=== PATIENT | female | born 1980 | race African-American/Black ===

== ENCOUNTER 2017-03-04 18:04 | Emergency (ER) | payer MEDICAID ==
[~2017-03-04] VITALS: Ht 172.7 cm; Wt 90.7 kg
[2017-03-04 18:23] VITALS: BP 155/113
[2017-03-04] MEDS ORDERED: DEXAMETHASONE SOD PHOS 20 MG/5 ML VIAL. IM ONE (19:00)
[2017-03-04] MEDS ORDERED: DIPHENHYDRAMINE 50 MG/ML VIAL. IM ONE (19:00)
--- NOTE | 2017-03-04 19:26 | PHYS DOC ---
Past Medical History Past Medical History: Hypertension Past Surgical History: , Other Additional Past Surgical Histo: left femur fracture repair with hardware Additional Information: 11/18 ppd Alcohol Use: None Drug Use: None Adult General Chief Complaint Chief Complaint: SKIN RASH/ABSCESS [facility] HPI Patient is a 36 year old female who presents with itchy rash for 2 days. She has spots on her abdomen, arms, and legs. Patient is currently living with her mother and tzqhut-ng-qwt at her boyfriend's house. Her oxmkbm-vb-hbg has a similar rash. Her boyfriend and aejqat-bf-njm do not have a rash. There are animals in the him that go outdoors. The patient denies any changes in household products, new medications, or new foods. She does not have any shortness of breath, angioedema, or fever. She does not have a PCP. Review of Systems Review of Systems Constitutional: Denies fever or chills. [] Eyes: Denies change in visual acuity, redness, or eye pain. [] HENT: Denies ear pain, nasal congestion or sore throat. His angioedema. Respiratory: Denies cough or shortness of breath. [] Cardiovascular: Denies chest pain, palpitations or edema. [] GI: Denies abdominal pain, nausea, vomiting, bloody stools or diarrhea. [] : Denies dysuria, hematuria or urinary frequency. [] Musculoskeletal: Denies back pain or joint pain. [] Integument: Denies skin lesions. Reports pruritic rash. Neurologic: Denies headache, focal weakness or sensory changes. [] Endocrine: Denies polyuria or polydipsia. [] Psych: Denies anxiety or depression. [] All systems reviewed and negative unless otherwise stated in the HPI. Current Medications Current Medications Current Medications Medications (Trade) Dose Ordered Sig/Massiel Start Time Stop Time Status Last Admin Dose Admin Dexamethasone Sodium Phosphate (Decadron) 10 mg 1X ONCE 03/04/17 19:00 03/04/17 19:01 DC 03/04/17 19:03 10 MG Diphenhydramine HCl (Benadryl) 25 mg 1X ONCE 03/04/17 19:00 03/04/17 19:01 DC 03/04/17 19:03 25 MG Allergies Allergies Allergies Coded Allergies Type Severity Reaction Last Updated Verified No Known Drug Allergies 03/04/17 No Physical Exam Physical Exam Constitutional: Well developed, well nourished, no acute distress, non-toxic appearance. [] HENT: Normocephalic, atraumatic, oropharynx moist. [] Eyes: PERRLA, EOMI, conjunctiva normal, no discharge. [] Neck: Normal range of motion, no tenderness, supple, no stridor. [] Skin: Warm, dry. There are urticaria on the abdomen. There are erythematous maculopapular lesions on the arms and legs that appear like insect bites. Back: No midline tenderness, no CVA tenderness. [] Extremities: No tenderness, ROM intact, no edema. Distal pulses equal bilaterally. [] Neurologic: Alert and oriented X 3, normal motor function, normal sensory function, no focal deficits noted. [] Psychologic: Affect normal, judgement normal, mood normal. [] Current Patient Data Vital Signs Vital Signs Date Time Temp Pulse Resp B/P Pulse Ox O2 Delivery O2 Flow Rate FiO2 03/04/17 18:23 98.8 86 16 94 Room Air 98.8 EKG EKG [] Radiology/Procedures Radiology/Procedures [] Course & Med Decision Making Course & Med Decision Making Pertinent Labs and Imaging studies reviewed. (See chart for details) The patient presents with pruritic rash that appears to be insect bites with localized allergic reaction causing hives on the abdomen. One household member has a similar rash and the other 2 do not. The patient is advised to wash all of her clothes and linens on hot water. She is given IM Decadron and Benadryl in the emergency department. She is instructed to continue Benadryl at home. Return precautions were discussed. She verbalizes understanding and agrees with plan. Dragon Disclaimer Dragon Disclaimer This electronic medical record was generated, in whole or in part, using a voice recognition dictation system. Departure Departure Impression: Primary Impression: Insect bite Additional Impression: Urticaria Disposition: 01 HOME, SELF-CARE Condition: STABLE Referrals: NO PCP (PCP) Patient Instructions: Hives, Tnjm-pj-Oqzr, Insect Bite, Zkmm-wd-Thio Additional Instructions: Your rash appears to be caused by insect bites causing a localized allergic reaction. You were given a shot of a long-acting steroid and a shot of Benadryl in the emergency department. Please continue taking Benadryl at home for itching. Use according to package instructions. Return to the emergency department if you have difficulty breathing, swelling of the lips or tongue, fever, or other new or concerning symptoms. Problem Qualifiers Primary Impression: Insect bite Encounter type: initial encounter Qualified Code: W57.XXXA - Bitten or stung by nonvenomous insect and other nonvenomous arthropods, initial encounter LONNIE DAWSON Mar 04, 2017 19:26
== END 2017-03-04 19:32 | disposition home or self-care (01) ==
LOC: ER 18:04
DX: L50.9 Urticaria, unspecified (principal); S30.861A Insect bite (nonvenomous) of abdominal wall, initial encounter; I10 Essential (primary) hypertension; F17.200 Nicotine dependence, unspecified, uncomplicated; W57.XXXA Bitten or stung by nonvenomous insect and other nonvenomous arthropods, initial encounter; Y93.89 Activity, other specified; Y92.89 Other specified places as the place of occurrence of the external cause; Y99.8 Other external cause status
CPT/HCPCS: 96372; 99284; J1100; J1200

== ENCOUNTER 2017-03-27 14:33 | Emergency (ER) | payer MEDICAID ==
[~2017-03-27] VITALS: Ht 170.2 cm; Wt 86.2 kg
[2017-03-27 14:54] VITALS: BP 170/103
[2017-03-27] MEDS ORDERED: PRED50TA PO (15:21)
[2017-03-27] MEDS ORDERED: TRIA15CR3 TP (15:21)
[2017-03-27] MEDS ORDERED: SPIR25TA3 PO (15:21)
[2017-03-27] MEDS ORDERED: HYDR12.58 PO (15:21)
[2017-03-27] MEDS ORDERED: FAMO-63 PO (15:21)
[2017-03-27] MEDS ORDERED: AMLO10TA2 PO (15:21)
--- NOTE | 2017-03-27 15:21 | PHYS DOC ---
Past Medical History Past Medical History: Hypertension Past Surgical History: , Other Additional Past Surgical Histo: left femur fracture repair with hardware Alcohol Use: None Drug Use: None Adult General Chief Complaint Chief Complaint: HIP PAIN HPI HPI Patient is a 36 year old female with history of hypertension who presents today with pruritic bruising/rashes on bilateral upper and lower extremities that began 2 weeks ago. Patient denies any new contacts. She states she does not have a PCP hence she has not been taking her blood pressure medicines. Patient denies any fever. Review of Systems Review of Systems Constitutional: Denies fever or chills [] Eyes: Denies change in visual acuity, redness, or eye pain [] HENT: Denies nasal congestion or sore throat [] Respiratory: Denies cough or shortness of breath [] Cardiovascular: No additional information not addressed in HPI [] GI: Denies abdominal pain, nausea, vomiting, bloody stools or diarrhea [] : Denies dysuria or hematuria [] Musculoskeletal: Denies back pain or joint pain [] Integument:bruising and rash Neurologic: Denies headache, focal weakness or sensory changes [] Endocrine: Denies polyuria or polydipsia [] Allergies Allergies Allergies Coded Allergies Type Severity Reaction Last Updated Verified No Known Drug Allergies 03/27/17 No Physical Exam Physical Exam Constitutional: Well developed, well nourished, no acute distress, non-toxic appearance. [] HENT: Normocephalic, atraumatic, bilateral external ears normal, oropharynx moist, no oral exudates, nose normal. [] Eyes: PERRLA, EOMI, conjunctiva normal, no discharge. [] Neck: Normal range of motion, no tenderness, supple, no stridor. [] Cardiovascular:Heart rate regular rhythm, no murmur [] Lungs & Thorax: Bilateral breath sounds clear to auscultation [] Abdomen: Bowel sounds normal, soft, no tenderness, no masses, no pulsatile masses. [] Skin: small scattered areas of erythematous macular rash on bilateral upper and lower extremities. Back: No tenderness, no CVA tenderness. [] Extremities: No tenderness, no cyanosis, no clubbing, ROM intact, no edema. [] Neurologic: Alert and oriented X 3, normal motor function, normal sensory function, no focal deficits noted. [] Psychologic: Affect normal, judgement normal, mood normal. [] Current Patient Data Vital Signs Vital Signs Date Time Temp Pulse Resp B/P (MAP) Pulse Ox O2 Delivery O2 Flow Rate FiO2 03/27/17 14:54 98.6 99 18 99 Room Air 98.6 EKG EKG [] Radiology/Procedures Radiology/Procedures [] Course & Med Decision Making Course & Med Decision Making Pertinent Labs and Imaging studies reviewed. (See chart for details) Patient has erythematous rash on bilateral upper and lower extremities suspicions of flea bites or contact dermatitis. She was given a prescription for Zyrtec and triamcinolone cream. Her blood pressure was 170/103, she states she has history of hypertension and is supposed to be on several medications which she has not taken for one because she has no PCP to get refills from. I did give her a primary care doctor list for follow-up. Gave her prescription for the medication she is supposed to be taking including amlodipine HCTZ and spironolactone. Dragon Disclaimer Dragon Disclaimer This electronic medical record was generated, in whole or in part, using a voice recognition dictation system. Departure Departure Impression: Primary Impression: Contact dermatitis Additional Impression: Accelerated hypertension Disposition: HOME, SELF-CARE Condition: STABLE Referrals: NO PCP (PCP) FATOU SHETH MD follow up with the primary care doctor and physiatrist Patient Instructions: Contact Dermatitis, Hypertension Additional Instructions: You were seen for a rash to bilateral upper and lower extremities. We put you on medications to help with this rash. Take them as prescribed. Follow-up with the primary care doctor for your hypertension as soon s you can and a physiatrist in 2 weeks if the rash does not clear with the medication. Scripts Spironolactone (SPIRONOLACTONE) 25 Mg Tablet 1 TAB PO DAILY, #30 TAB 5 Refills Prov: PETE BALDERAS LANDCARE OFFICER 03/27/17 Hydrochlorothiazide (HYDROCHLOROTHIAZIDE TABLET) 12.5 Mg Tablet 1 TAB PO DAILY, #30 TAB 0 Refills Prov: PETE BALDERAS APRN 03/27/17 Amlodipine Besylate (AMLODIPINE BESYLATE) 10 Mg Tablet 10 MG PO DAILY, #30 TAB Prov: PETE BALDERAS LANDCARE OFFICER 03/27/17 Triamcinolone Acetonide (TRIAMCINOLONE ACETONIDE 0.1% CREAM) 15 Gm Cream..g. 1 LETA TP BID, #1 TUBE 1 Refill Prov: PETE BALDERAS PIPO 03/27/17 Famotidine (PEPCID) 20 Mg Tablet 20 MG PO DAILY for 7 Days, #7 TAB Prov: PETE BALDERAS LANDCARE OFFICER 03/27/17 Prednisone (PREDNISONE) 50 Mg Tablet 1 TAB PO DAILY, #5 TAB Prov: PETE BALDERAS LANDCARE OFFICER 03/27/17 Problem Qualifiers Primary Impression: Contact dermatitis Contact dermatitis type: unspecified Contact dermatitis trigger: unspecified trigger Qualified Codes: L25.9 - Unspecified contact dermatitis, unspecified cause PETE BALDERAS PIPO March 27, 2017 15:21
== END 2017-03-27 15:30 | disposition home or self-care (01) ==
LOC: ER 14:33
DX: L25.9 Unspecified contact dermatitis, unspecified cause (principal); I10 Essential (primary) hypertension
CPT/HCPCS: 99283

== ENCOUNTER 2017-05-28 05:30 | Emergency (ER) | payer MEDICAID ==
[~2017-05-28] VITALS: Ht 170.2 cm; Wt 97.5 kg
[~2017-05-28 05:30] MED LIST: AMLO10TA2 PO; FAMO-63 PO; HYDR12.58 PO; PRED50TA PO; SPIR25TA3 PO; TRIA15CR3 TP
--- NOTE | 2017-05-28 06:12 | PHYS DOC ---
Past Medical History Past Medical History: Hypertension, Other Additional Past Medical Histor: FIBROIDS Past Surgical History: , Other Additional Past Surgical Histo: left femur fracture repair with hardware Alcohol Use: None Drug Use: None Adult General Chief Complaint Chief Complaint: VAGINAL BLEEDING HPI HPI Patient is a 36 year old -[place] female who presents with abdominal pain. She states she has a history of uterine fibroids and had to have a Mirena implanted to prevent her menorrhalgia. She states this morning it 5:30 she woke up having abdominal pain and some cramps in her thighs and changed her tampon in her Mirena fell out. She presents to ER complaining about 7 out of 10 abdominal pain states she has some cramps during her menstrual cycles but not like this even though she told the nurses this is the pain she has with her menstrual cycle. She denies any nausea vomiting, she denies any recent intercourse last night. States that she is on her cycle currently. She also states she has a history of hypertensions was been hydrochlorothiazide and Norvasc but has been out of these since February. She denies any chest pain or headache. Review of Systems Review of Systems Constitutional: Denies fever or chills [] Eyes: Denies change in visual acuity, redness, or eye pain [] HENT: Denies nasal congestion or sore throat [] Respiratory: Denies cough or shortness of breath [] Cardiovascular: No additional information not addressed in HPI [] GI: Denies abdominal pain, nausea, vomiting, bloody stools or diarrhea [] : Denies dysuria or hematuria [] Musculoskeletal: Denies back pain or joint pain [] Integument: Denies rash or skin lesions [] Neurologic: Denies headache, focal weakness or sensory changes [] Endocrine: Denies polyuria or polydipsia [] Current Medications Current Medications Current Medications Medications (Trade) Dose Ordered Sig/Massiel Start Time Stop Time Status Last Admin Dose Admin Acetaminophen/ Hydrocodone Bitart (Lortab 5/325) 2 tab 1X ONCE 05/28/17 06:45 05/28/17 06:46 DC 05/28/17 06:32 2 TAB Allergies Allergies Allergies Coded Allergies Type Severity Reaction Last Updated Verified No Known Drug Allergies 03/27/17 No Physical Exam Physical Exam Constitutional: Well developed, well nourished, no acute distress, non-toxic appearance. [] HENT: Normocephalic, atraumatic, bilateral external ears normal, oropharynx moist, no oral exudates, nose normal. [] Eyes: PERRLA, EOMI, conjunctiva normal, no discharge. [] Neck: Normal range of motion, no tenderness, supple, no stridor. [] Cardiovascular:Heart rate regular rhythm, no murmur [] Lungs & Thorax: Bilateral breath sounds clear to auscultation [] Abdomen/pelvic: Bowel sounds normal, soft, no tenderness, no masses, no pulsatile masses. Normal external genitalia, no cervical motion tenderness, minimal blood in the vault. Skin: Warm, dry, no erythema, no rash. [] Back: No tenderness, no CVA tenderness. [] Extremities: No tenderness, no cyanosis, no clubbing, ROM intact, no edema. [] Neurologic: Alert and oriented X 3, normal motor function, normal sensory function, no focal deficits noted. [] Psychologic: Affect normal, judgement normal, mood normal. [] Current Patient Data Vital Signs Vital Signs Date Time Temp Pulse Resp B/P (MAP) Pulse Ox O2 Delivery O2 Flow Rate FiO2 05/28/17 06:32 18 Room Air 05/28/17 05:35 98.5 91 169/112 (131) 97 98.5 Lab Values Laboratory Tests Test 05/28/17 06:42 POC Urine HCG, Qualitative Hcg negative (Negative) Microbiology 05/28/17 Wet Prep - Final, Complete EKG EKG [] Radiology/Procedures Radiology/Procedures RUN DATE: 05/28/17 PAGE 1 RUN TIME: [address] [facility] [address] [place] [address] Matias Cummings M.D., [employer] PATIENT: HONEY RILEY ACCT: [id number] LOC: U : [id number] AGE/SX: 36/F ROOM: REG : 05/28/[address]: LEE CORREA MD : 1980 BED: DIS : STATUS: REG ER TLOC: SPEC #: [id number] SHIRLEY: 05/28/17 STATUS: COMP REQ #: [id number] RECD: 05/28/[address]: LEE CORREA MD SOURCE: VAGINAL ENTR: 05/28/[address]: ROHIT CALDERON SPDESC: ORDERED: WET PREP COMMENTS: Has specimen been collected/obtained? Y Procedure Result WET PREP Final YEAST NONE SEEN TRICHOMONAS NONE SEEN CLUE CELLS NONE SEEN RBCS [facility] [address] [id number] IMAGING REPORT Signed PATIENT: HONEY RILEY ACCOUNT: [id number] : 1980 LOCATION: ER AGE: 36 SEX: F EXAM STATUS: REG ER ORD. PHYSICIAN: LEE CORREA MD REASON: VAGINAL BLEEDING PROCEDURE: PELVIS W/TV INDICATION: Vaginal bleeding after mirena came out COMPARISON: None. TECHNIQUE: Grayscale and color ultrasound images uterus and adnexa. Transabdominal and transvaginal images obtained. FINDINGS: Uterus: 92 x 71 x 51 mm. Endometrial Stripe: 8 mm. Right Ovary: 38 x 22 x 20 mm. Left Ovary: 31 x 22 x 16 mm. Vascular flow identified to bilateral ovaries. There is some heterogeneity of the uterus with suspected heterogenous lesions within the myometrium. Largest of these measure approximately 21 x 20 mm. IMPRESSION: 1. Heterogenous myometrium with suspicion of multiple heterogenous masses within which can be seen with uterine fibroid. 2. Vascular flow seen to the ovaries. Electronically signed by: Laurita Kimble MD (05/28/2017 6:58 AM) [facility] DICTATED and SIGNED BY: LAURITA KIMBLE MD DATE: 05/28/17 0655 CC: LEE CORREA MD; NO PCP ~ END OF REPORT Impressions: Abdominal pain Hypertension Course & Med Decision Making Course & Med Decision Making Pertinent Labs and Imaging studies reviewed. (See chart for details) Ultrasound of her pelvis shows bilateral blood flow to ovaries, pelvic exams unremarkable. Wet mount is negative. GC chlamydia is pending. Patient was given a prescription for 5 mg Norvasc and instructed to follow-up with OB and a primary care physician in 2 weeks when she obtains insurance. A list of OB he's been given to her and primary care physicians. At this point I will provide her with Norvasc since he does not require labs to be followed up and she was on this prior. She will need to see a primary care physician in order to obtain Hydrocort thiazide as this can cause electrolyte abnormalities and she needs repeat labs. She is instructed to return ER for worsening abdominal pain, lightheadedness, chest pain or other concerns. She can take Advil for discomfort through her menstrual cycle. Dragon Disclaimer Dragon Disclaimer This electronic medical record was generated, in whole or in part, using a voice recognition dictation system. Departure Departure Impression: Primary Impression: Abdominal pain Additional Impression: Hypertension Disposition: HOME, SELF-CARE Referrals: NO PCP (PCP) KAJAL GRESHAM MD Patient Instructions: Uterine Fibroid, [id number] Additional Instructions: You were seen today for your Mirena falling out and for your abdominal pain. The ultrasound of your ovaries and uterus shows her fibroids but does not show any cysts or other abnormalities on her ovaries. Your blood pressure is elevated and you are being discharged with Norvasc 5 mg 1 tablet daily. You will need to follow-up with an FACILITY COORDINATOR physician. You can follow-up with Dr. Ordoñez and her contact information is been provided for you. You can take 600 mg of Advil every 8 hours for your abdominal pain. Return ER for severe pain, lightheadedness dizziness or other concerns. You will also need to follow-up with primary care physician regarding her elevated blood pressure. Scripts Amlodipine Besylate (NORVASC) 5 Mg Tablet 1 TAB PO DAILY, #30 TAB Prov: LEE CORREA MD 05/28/17 Problem Qualifiers Primary Impression: Abdominal pain Abdominal location: unspecified location Qualified Codes: R10.9 - Unspecified abdominal pain Additional Impression: Hypertension Hypertension type: essential hypertension Qualified Codes: I10 - Essential ( primary) hypertension LEE CORREA MD May 28, 2017 06:12
[2017-05-28] MEDS ORDERED: HYDROcodone/APAP 5/325MG 1 TAB TABLET PO ONE (06:45)
--- NOTE | 2017-05-28 07:01 | RAD ---
INDICATION: Vaginal bleeding after mirena came out COMPARISON: None. TECHNIQUE: Grayscale and color ultrasound images uterus and adnexa. Transabdominal and transvaginal images obtained. FINDINGS: Uterus: 92 x 71 x 51 mm. Endometrial Stripe: 8 mm. Right Ovary: 38 x 22 x 20 mm. Left Ovary: 31 x 22 x 16 mm. Vascular flow identified to bilateral ovaries. There is some heterogeneity of the uterus with suspected heterogenous lesions within the myometrium. Largest of these measure approximately 21 x 20 mm. IMPRESSION: 1. Heterogenous myometrium with suspicion of multiple heterogenous masses within which can be seen with uterine fibroid. 2. Vascular flow seen to the ovaries. Electronically signed by: Akash Ag MD (05/28/2017 6:58 AM) [facility]
[2017-05-28 07:43] LABS: BILIRUBIN,URINE NEGATIVE (NEG); GLUCOSE,URINE NEGATIVE (NEG); NITRITE,URINE POSITIVE (NEG); PROTEIN,URINE NEGATIVE (NEG-TRACE)
[2017-05-28 08:02] LABS: BACTERIA,URINE MANY /HPF (0-FEW); SQUAMOUS EPITHELIAL CELL,UR FEW /LPF
[2017-05-28] MEDS ORDERED: AMLO5TAB4 PO (08:04)
[2017-05-28 08:19] VITALS: BP 172/107
== END 2017-05-28 08:27 | disposition home or self-care (01) ==
LOC: ER 05:30
DX: R10.9 Unspecified abdominal pain (principal); I10 Essential (primary) hypertension; Z98.890 Other specified postprocedural states
CPT/HCPCS: 76830; 76856; 81001; 81025; 87086; 87491; 87591; 99285; Q0111

== ENCOUNTER 2017-10-27 18:29 | Emergency (ER) | payer SELFPAY ==
[~2017-10-27] VITALS: Ht 170.2 cm; Wt 85.7 kg
[~2017-10-27 18:29] MED LIST changes: +AMLO5TAB4 PO
[2017-10-27 18:56] LABS: BILIRUBIN,URINE NEGATIVE (NEG); GLUCOSE,URINE NEGATIVE (NEG); NITRITE,URINE POSITIVE (NEG); PH,URINE 6.5; PROTEIN,URINE NEGATIVE (NEG-TRACE)
[2017-10-27 19:09] LABS: RBC,URINE 0 /HPF (0-2)
[2017-10-27 19:10] LABS: BACTERIA,URINE MANY /HPF (0-FEW); SQUAMOUS EPITHELIAL CELL,UR MOD /LPF; WBC,URINE 20-40 /HPF (0-4)
[2017-10-27] MEDS ORDERED: ONDANSETRON ODT 4 MG TAB.RAPDIS. PO ONE (19:15)
[2017-10-27] MEDS ORDERED: HYDROmorphone 2 MG/ML VIAL IM ONE (19:15)
--- NOTE | 2017-10-27 19:18 | PHYS DOC ---
Past Medical History Past Medical History: Hypertension, Other Additional Past Medical Histor: UTERINE FIBROIDS Past Surgical History: , Other Additional Past Surgical Histo: left femur fracture repair with hardware Alcohol Use: None Drug Use: None Adult General Chief Complaint Chief Complaint: PELVIC PAIN HPI HPI Patient is a 37 year old female who presents with since last night severe pelvic pain and cramping with vaginal spotting that she describes as her "fibroid pain "; no dysuria or frequency or flank pain; no vaginal discharge no fever no nausea vomiting or diarrhea. Last menstrual period 2 weeks ago. History of bilateral tubal ligation. History of fibroids but has not followed up with a local publishing systems analyst since her last ER visit for the same problem. Ultrasound from the ER on the last visit demonstrated fibroids. Review of Systems Review of Systems Constitutional: Denies fever or chills [] Eyes: Denies change in visual acuity, redness, or eye pain [] HENT: Denies nasal congestion or sore throat [] Respiratory: Denies cough or shortness of breath [] Cardiovascular: No additional information not addressed in HPI [] GI: Denies abdominal pain, nausea, vomiting, bloody stools or diarrhea [] : Denies dysuria or hematuria [] Musculoskeletal: Denies back pain or joint pain [] Integument: Denies rash or skin lesions [] Neurologic: Denies headache, focal weakness or sensory changes [] Endocrine: Denies polyuria or polydipsia [] All other systems were reviewed and found to be within normal limits, except as documented in this note. Current Medications Current Medications Current Medications Medications (Trade) Dose Ordered Sig/[facility] Start Time Stop Time Status Last Admin Dose Admin Hydromorphone HCl (Dilaudid) 1 mg 1X ONCE 10/27/17 19:15 10/27/17 19:18 DC 10/27/17 19:23 1 MG Ondansetron HCl (Zofran Odt) 4 mg 1X ONCE 10/27/17 19:15 10/27/17 19:18 DC 10/27/17 19:23 4 MG Allergies Allergies Allergies Coded Allergies Type Severity Reaction Last Updated Verified No Known Drug Allergies 03/27/17 No Physical Exam Physical Exam Constitutional: Well developed, well nourished, no acute distress, non-toxic appearance. [] HENT: Normocephalic, atraumatic, bilateral external ears normal, oropharynx moist, no oral exudates, nose normal. [] Eyes: PERRLA, EOMI, conjunctiva normal, no discharge. [] Neck: Normal range of motion, no tenderness, supple, no stridor. [] Cardiovascular:Heart rate regular rhythm, no murmur [] Lungs & Thorax: Bilateral breath sounds clear to auscultation [] Abdomen: Bowel sounds normal, soft, no tenderness, no masses, no pulsatile masses. [] Skin: Warm, dry, no erythema, no rash. [] Back: No tenderness, no CVA tenderness. [] Extremities: No tenderness, no cyanosis, no clubbing, ROM intact, no edema. [] Neurologic: Alert and oriented X 3, normal motor function, normal sensory function, no focal deficits noted. [] Psychologic: Affect normal, judgement normal, mood normal. [] Current Patient Data Vital Signs Vital Signs Date Time Temp Pulse Resp B/P (MAP) Pulse Ox O2 Delivery O2 Flow Rate FiO2 10/27/17 20:11 88 181/116 (137) 100 Room Air 10/27/17 19:43 18 10/27/17 18:40 98.1 98.1 Lab Values Laboratory Tests Test 10/27/17 18:45 Urine Collection Type Unknown Urine Color Yellow Urine Clarity Cloudy Urine pH 6.5 Urine Specific [place] 1.020 Urine Protein Negative mg/dL (NEG-TRACE) Urine Glucose (UA) Negative mg/dL (NEG) Urine Ketones (Stick) Negative mg/dL (NEG) Urine Blood Large (NEG) Urine Nitrite Positive (NEG) Urine Bilirubin Negative (NEG) Urine Urobilinogen Dipstick 1.0 mg/dL (0.2 mg/dL) Urine Leukocyte Esterase Small (NEG) Urine RBC 0 /HPF (0-2) Urine WBC 20-40 /HPF (0-4) Urine Squamous Epithelial Cells Mod /LPF Urine Bacteria Many /HPF (0-FEW) Urine Mucus Mod /LPF Microbiology 10/27/17 Wet Prep - Final, Complete EKG EKG [] Radiology/Procedures Radiology/Procedures [] Course & Med Decision Making Course & Med Decision Making Pertinent Labs and Imaging studies reviewed. (See chart for details) Plan to check urinalysis urine test and vaginal self swabs[ UA consistent with possible urinary tract infection. I recommend follow-up with a local publishing systems analyst.] Dragon Disclaimer Dragon Disclaimer This electronic medical record was generated, in whole or in part, using a voice recognition dictation system. Departure Departure Impression: Primary Impression: Pelvic pain Additional Impressions: Urinary tract infection Uterine fibroid Disposition: HOME, SELF-CARE Condition: IMPROVED Referrals: NO PCP (PCP) Patient Instructions: Pelvic Pain, Female, Xjuk-[id number], Urinary Tract Infection, Wxce-ux-Xovw, Uterine Fibroid, Wdze-uc-Bnjk Additional Instructions: follow up w a local publishing systems analyst. Scripts Nitrofurantoin Monohyd/M-Cryst (MACROBID 100 MG CAPSULE) 100 Mg Capsule 1 CAP PO BID, #14 CAP Prov: DADA GUALLPA MD 10/27/17 Tramadol Hcl (ULTRAM) 50 Mg Tablet 1 TAB PO TID Y for PAIN, #10 TAB Prov: DADA GUALLPA MD 10/27/17 Problem Qualifiers DADA GUALLPA MD Oct 27, 2017 19:18
[2017-10-27] MEDS ORDERED: TRAM-48 PO (19:52)
[2017-10-27] MEDS ORDERED: NITR100C62 PO (19:58)
[2017-10-27 20:11] VITALS: BP 181/116
== END 2017-10-27 20:14 | disposition home or self-care (01) ==
LOC: ER 18:29
DX: N39.0 Urinary tract infection, site not specified (principal); D25.9 Leiomyoma of uterus, unspecified; I10 Essential (primary) hypertension; Z98.51 Tubal ligation status
CPT/HCPCS: 81001; 87491; 87591; 96372; 99284; J1170; Q0111; Q0162

== ENCOUNTER 2017-11-22 18:11 | Emergency (ER) | payer OTHER ==
[2017-11-22 18:45] LABS: ADD MAN DIFF? NO
[2017-11-22 18:48] LABS: BASO % 1 % (0-3); EOS % 1 % (0-3); HEMATOCRIT 32.4 % (36.0-47.0); HEMOGLOBIN 10.6 g/dL (12.0-15.5); LYMPH # 1.4 x10^3/uL (1.0-4.8); LYMPH % 25 % (24-48); MEAN CORPUSCULAR HEMOGLOBIN 29 pg (25-35); MEAN CORPUSCULAR HGB CONC 33 g/dL (31-37); MEAN CORPUSCULAR VOLUME 89 fL (79-100); MONO # 0.4 x10^3/uL (0.0-1.1); MONO % 7 % (0-9); NEUT # 3.8 x10^3uL (1.8-7.7); NEUT % 67 % (31-73); PLATELET COUNT 227 x10^3/uL (140-400); RED BLOOD COUNT 3.65 x10^6/uL (3.50-5.40); RED CELL DISTRIBUTION WIDTH 14.9 % (11.5-14.5); WHITE BLOOD COUNT 5.7 x10^3/uL (4.0-11.0)
[2017-11-22] MEDS: oxyCODONE/APAP 5/325 1 TAB TABLET PO (18:56)
[2017-11-22 18:57] LABS: URINE HCG POC HCG NEGATIVE (Negative)
== END 2017-11-22 21:42 | disposition home or self-care (01) ==
LOC: ER 18:11
DX: D25.9 Leiomyoma of uterus, unspecified (principal); N93.9 Abnormal uterine and vaginal bleeding, unspecified; I10 Essential (primary) hypertension; F17.200 Nicotine dependence, unspecified, uncomplicated; Z98.51 Tubal ligation status; Z98.890 Other specified postprocedural states
CPT/HCPCS: 36415; 76830; 76856; 81025; 85025; 99285-25

== ENCOUNTER 2017-12-02 08:19 | Observation (INO) | payer OTHER ==
[2017-12-02] MEDS: MORPHINE SULFATE 4 MG/ML DISP.SYRIN. IV (08:42)
[2017-12-02] MEDS: KETOROLAC 30 MG/ML INJ. IV (08:42)
[2017-12-02 08:46] LABS: BASO % 0 % (0-3); EOS % 0 % (0-3); HEMATOCRIT 30.7 % (36.0-47.0); HEMOGLOBIN 10.1 g/dL (12.0-15.5); LYMPH # 0.4 x10^3/uL (1.0-4.8); LYMPH % 6 % (24-48); MEAN CORPUSCULAR HEMOGLOBIN 29 pg (25-35); MEAN CORPUSCULAR HGB CONC 33 g/dL (31-37); MEAN CORPUSCULAR VOLUME 87 fL (79-100); MONO # 0.2 x10^3/uL (0.0-1.1); MONO % 3 % (0-9); NEUT # 6.5 x10^3uL (1.8-7.7); NEUT % 91 % (31-73); PLATELET COUNT 220 x10^3/uL (140-400); RED BLOOD COUNT 3.53 x10^6/uL (3.50-5.40); RED CELL DISTRIBUTION WIDTH 14.2 % (11.5-14.5); WHITE BLOOD COUNT 7.2 x10^3/uL (4.0-11.0)
[2017-12-02 08:47] LABS: ADD MAN DIFF? YES
[2017-12-02 08:58] LABS: ANION GAP 15 (6-14); BLOOD UREA NITROGEN 12 mg/dL (7-20); BUN/CREATININE RATIO 13 (6-20); CALCIUM 9.1 mg/dL (8.5-10.1); CARBON DIOXIDE 23 mmol/L (21-32); CHLORIDE 100 mmol/L (98-107); CREATININE 0.9 mg/dL (0.6-1.0); GFR 84.3; GLUCOSE 129 mg/dL (70-99); POTASSIUM 3.8 mmol/L (3.5-5.1); SODIUM 138 mmol/L (136-145)
[2017-12-02 09:04] LABS: ALBUMIN 4.2 g/dL (3.4-5.0); ALBUMIN/GLOBULIN RATIO 1.1 (1.0-1.7); ALK PHOS 67 U/L (46-116); ALT (SGPT) 21 U/L (14-59); AST (SGOT) 26 U/L (15-37); TOTAL BILIRUBIN 0.6 mg/dL (0.2-1.0); TOTAL PROTEIN 8.2 g/dL (6.4-8.2)
[2017-12-02] MEDS: IV NORMAL SALINE 1000ML BAG 1,000 ML IV (09:26)
[2017-12-02] MEDS ORDERED: CONTRAST GIVEN MC (10:15)
[2017-12-02] MEDS: IOHEXOL 300 MG/ML 100ML VIAL. IV (10:23)
[2017-12-02 10:24] LABS: URINE HCG POC HCG NEGATIVE (Negative)
[2017-12-02] MEDS: MORPHINE SULFATE 10 MG/ML VIAL. IV (10:47)
[2017-12-02 11:29] LABS: BILIRUBIN,URINE NEGATIVE (NEG); CLARITY,URINE CLEAR; COLOR,URINE YELLOW; GLUCOSE,URINE NEGATIVE (NEG); NITRITE,URINE NEGATIVE (NEG); PH,URINE 5.5; PROTEIN,URINE NEGATIVE (NEG-TRACE)
[2017-12-02 11:40] LABS: BACTERIA,URINE FEW /HPF (0-FEW); SQUAMOUS EPITHELIAL CELL,UR MANY /LPF
[2017-12-02] MEDS ORDERED: IV NORMAL SALINE 1000ML BAG 1,000 ML IV (11:45)
[2017-12-02] MEDS ORDERED: MORPHINE SULFATE 4 MG/ML DISP.SYRIN. IV (11:45)
[2017-12-02 12:26] LABS: % BANDS 22 % (0-9); % LYMPHS 10 % (24-48); % SEGS 68 % (35-66)
[2017-12-02 12:27] LABS: PLT ESTIMATE ADEQUATE (ADEQUATE)
[2017-12-02] MEDS ORDERED: fentaNYL PF VIAL 100 MCG/2 ML VIAL (13:43)
[2017-12-02] MEDS ORDERED: KETOROLAC 30 MG/ML INJ FOR OR. INJ (13:43)
[2017-12-02] MEDS ORDERED: DEXAMETHASONE SOD PHOS 20 MG/5 ML VIAL. (13:43)
[2017-12-02] MEDS ORDERED: PROPOFOL 20 ML IV (13:43)
[2017-12-02] MEDS ORDERED: ONDANSETRON PF 4 MG/2 ML VIAL. (13:43)
[2017-12-02] MEDS ORDERED: LIDOCAINE 1% PF 5 ML VIAL. (13:43)
[2017-12-02] MEDS ORDERED: FAMOTIDINE 20 MG/2 ML VIAL (13:43)
[2017-12-02] MEDS ORDERED: MIDAZOLAM HCL/PF 2 MG/2 ML VIAL. (13:44)
[2017-12-02] MEDS ORDERED: PROCHLORPERAZINE 10 MG/2 ML VIAL. IV (13:45)
[2017-12-02] MEDS ORDERED: ONDANSETRON PF 4 MG/2 ML VIAL. IV ×2 (13:45→15:30)
[2017-12-02] MEDS ORDERED: MORPHINE SULFATE 2 MG/ML DISP.SYRIN. IV ×2 (13:45→15:30)
[2017-12-02] MEDS ORDERED: fentaNYL PF VIAL 100 MCG/2 ML VIAL IV ×2 (13:45)
[2017-12-02] MEDS ORDERED: HYDROmorphone 2 MG/ML VIAL IV (13:45)
[2017-12-02] MEDS: IV RINGERS,LACTATED 1000ML 1,000 ML IV (14:01)
[2017-12-02] MEDS: LIDOCAINE 1% PF 2 ML VIAL. ID (14:02)
[2017-12-02] MEDS ORDERED: PHENYLEPHRINE in 0.9% NACL PF 1 MG/10 ML SYRINGE. IV (14:42)
[2017-12-02] MEDS ORDERED: SEVOFLURANE 31 TO 60 MINUTES. IH (15:13)
[2017-12-02] MEDS ORDERED: ceFAZolin SODIUM 1 GM in IV DEXTROSE 5% 50 ML IV (15:30)
[2017-12-02] MEDS ORDERED: MAG HYDROX/ALUMINUM HYD/SIMETH 30 ML ORAL.SUSP PO (15:30)
[2017-12-02] MEDS ORDERED: METOCLOPRAMIDE HCL 10 MG/2 ML VIAL. IV (15:30)
[2017-12-02] MEDS ORDERED: DEXTROSE 50% 25 GM / 50ML DISP.SYRIN. IV (15:30)
[2017-12-02] MEDS ORDERED: 0.9 % SODIUM CHLORIDE 10 ML DISP.SYRIN. IV (15:30)
[2017-12-02] MEDS ORDERED: KETOROLAC 30 MG/ML INJ. IV (15:30)
[2017-12-02] MEDS ORDERED: diphenhydrAMINE HCL 25 MG CAPSULE PO (15:30)
[2017-12-02] MEDS ORDERED: oxyCODONE/APAP 5/325 1 TAB TABLET PO (15:30)
[2017-12-02] MEDS: ceFAZolin SODIUM IV Push 1 GM VIAL. IVP (17:06)
[2017-12-02] MEDS: oxyCODONE/APAP 5/325 1 TAB TABLET PO ×2 (17:46→21:52)
[2017-12-02] MEDS: NICOTINE 21MG PATCH. TD (21:33)
[2017-12-03] MEDS: oxyCODONE/APAP 5/325 1 TAB TABLET PO ×2 (05:36→09:54)
[2017-12-03] MEDS ORDERED: PNEUMOCOCCAL VAX SCREEN BY RX. MC (05:45)
[2017-12-03] MEDS: PNEUMOC CONJ VACC 23-VALENT 0.5 ML VIAL. VAX IM (10:39)
== END 2017-12-03 10:45 | disposition home or self-care (01) ==
LOC: ER 08:19 → 3 NORTH 11:35
DX: D25.9 Leiomyoma of uterus, unspecified (principal); I10 Essential (primary) hypertension; M17.10 Unilateral primary osteoarthritis, unspecified knee; N93.9 Abnormal uterine and vaginal bleeding, unspecified; Z23 Encounter for immunization
CPT/HCPCS: 36415; 74177; 80053; 81001; 81025; 85007; 85025; 87086; 88305; 90471; 90732; 96361; 96374; 96375; 96376; 99285-25; G0378; G0379; J0690; J1100; J1885; J2250; J2270; J2370; J2405; J2704; J3010; J7030; J7120; Q9967; S0028

== ENCOUNTER 2017-12-16 19:12 | Inpatient (IN) | payer OTHER ==
[2017-12-16 20:00] LABS: ADD MAN DIFF? NO
[2017-12-16] MEDS ORDERED: ONDANSETRON PF 4 MG/2 ML VIAL. IV (20:00)
[2017-12-16] MEDS: ONDANSETRON PF 4 MG/2 ML VIAL. IV (20:00)
[2017-12-16] MEDS: fentaNYL PF VIAL 100 MCG/2 ML VIAL IV ×2 (20:00→21:06)
[2017-12-16] MEDS: IV NORMAL SALINE 1000ML BAG 1,000 ML IV (20:00)
[2017-12-16 20:08] LABS: BASO # 0.1 x10^3/uL (0.0-0.2); BASO % 1 % (0-3); EOS % 0 % (0-3); HEMATOCRIT 28.6 % (36.0-47.0); HEMOGLOBIN 9.3 g/dL (12.0-15.5); LYMPH # 1.8 x10^3/uL (1.0-4.8); LYMPH % 19 % (24-48); MEAN CORPUSCULAR HEMOGLOBIN 27 pg (25-35); MEAN CORPUSCULAR HGB CONC 33 g/dL (31-37); MEAN CORPUSCULAR VOLUME 83 fL (79-100); MONO # 0.7 x10^3/uL (0.0-1.1); MONO % 8 % (0-9); NEUT # 6.5 x10^3uL (1.8-7.7); NEUT % 72 % (31-73); PLATELET COUNT 365 x10^3/uL (140-400); RED BLOOD COUNT 3.44 x10^6/uL (3.50-5.40); RED CELL DISTRIBUTION WIDTH 15.1 % (11.5-14.5); WHITE BLOOD COUNT 9.1 x10^3/uL (4.0-11.0)
[2017-12-16 20:25] LABS: ANION GAP 7 (6-14); BLOOD UREA NITROGEN 7 mg/dL (7-20); BUN/CREATININE RATIO 9 (6-20); CALCIUM 8.9 mg/dL (8.5-10.1); CARBON DIOXIDE 28 mmol/L (21-32); CHLORIDE 99 mmol/L (98-107); CREATININE 0.8 mg/dL (0.6-1.0); GFR 96.6; GLUCOSE 93 mg/dL (70-99); POTASSIUM 3.5 mmol/L (3.5-5.1); SODIUM 134 mmol/L (136-145)
[2017-12-16 20:31] LABS: ALBUMIN 3.2 g/dL (3.4-5.0); ALBUMIN/GLOBULIN RATIO 0.7 (1.0-1.7); ALK PHOS 71 U/L (46-116); ALT (SGPT) 22 U/L (14-59); AST (SGOT) 13 U/L (15-37); LIPASE 81 U/L (73-393); TOTAL BILIRUBIN 0.3 mg/dL (0.2-1.0); TOTAL PROTEIN 7.7 g/dL (6.4-8.2)
[2017-12-17] MEDS: IV NORMAL SALINE 1000ML BAG 1,000 ML IV ×2 (00:57→09:00)
[2017-12-17] MEDS: fentaNYL PF VIAL 100 MCG/2 ML VIAL IV ×2 (01:17→04:55)
[2017-12-17 05:20] LABS: ADD MAN DIFF? NO
[2017-12-17 05:42] LABS: BASO % 0 % (0-3); EOS % 1 % (0-3); HEMATOCRIT 26.8 % (36.0-47.0); HEMOGLOBIN 8.5 g/dL (12.0-15.5); LYMPH # 1.4 x10^3/uL (1.0-4.8); LYMPH % 22 % (24-48); MEAN CORPUSCULAR HEMOGLOBIN 27 pg (25-35); MEAN CORPUSCULAR HGB CONC 32 g/dL (31-37); MEAN CORPUSCULAR VOLUME 84 fL (79-100); MONO # 0.7 x10^3/uL (0.0-1.1); MONO % 11 % (0-9); NEUT # 4.2 x10^3uL (1.8-7.7); NEUT % 66 % (31-73); PLATELET COUNT 304 x10^3/uL (140-400); RED BLOOD COUNT 3.21 x10^6/uL (3.50-5.40); RED CELL DISTRIBUTION WIDTH 15.4 % (11.5-14.5); WHITE BLOOD COUNT 6.4 x10^3/uL (4.0-11.0)
[2017-12-17 06:13] LABS: ANION GAP 9 (6-14); BLOOD UREA NITROGEN 5 mg/dL (7-20); CALCIUM 8.4 mg/dL (8.5-10.1); CARBON DIOXIDE 26 mmol/L (21-32); CHLORIDE 103 mmol/L (98-107); CREATININE 0.7 mg/dL (0.6-1.0); GFR 112.7; GLUCOSE 91 mg/dL (70-99); SODIUM 138 mmol/L (136-145)
[2017-12-17] MEDS ORDERED: 0.9 % SODIUM CHLORIDE 10 ML DISP.SYRIN. IV (07:15)
[2017-12-17] MEDS ORDERED: diphenhydrAMINE HCL 25 MG CAPSULE PO (07:15)
[2017-12-17] MEDS ORDERED: MORPHINE SULFATE 2 MG/ML DISP.SYRIN. IV (07:15)
[2017-12-17] MEDS ORDERED: ONDANSETRON PF 4 MG/2 ML VIAL. IV (07:15)
[2017-12-17] MEDS ORDERED: METOCLOPRAMIDE HCL 10 MG/2 ML VIAL. IV (07:15)
[2017-12-17] MEDS ORDERED: DEXTROSE 50% 25 GM / 50ML DISP.SYRIN. IV (07:15)
[2017-12-17] MEDS ORDERED: MAG HYDROX/ALUMINUM HYD/SIMETH 30 ML ORAL.SUSP PO (07:15)
[2017-12-17] MEDS ORDERED: oxyCODONE/APAP 5/325 1 TAB TABLET PO (07:15)
[2017-12-17] MEDS ORDERED: hydroCHLOROthiazide 12.5 MG CAPSULE PO (09:00)
[2017-12-17] MEDS: oxyCODONE/APAP 5/325 1 TAB TABLET PO (09:08)
[2017-12-17] MEDS: KETOROLAC 30 MG/ML INJ. IV (09:09)
[2017-12-17] MEDS ORDERED: amLODIPine BESYLATE 10 MG TABLET PO (11:00)
== END 2017-12-17 18:09 | disposition home or self-care (01) | DRG 760 ==
LOC: ER 19:12 → 3 NORTH 19:40
DX: D25.9 Leiomyoma of uterus, unspecified (principal); E44.1 Mild protein-calorie malnutrition; E87.1 Hypo-osmolality and hyponatremia; I10 Essential (primary) hypertension; Z98.51 Tubal ligation status; D50.0 Iron deficiency anemia secondary to blood loss (chronic)
CPT/HCPCS: 36415; 80048; 80053; 83690; 85025; 96361; 96374; 96375; 99285-25; J1885; J2405; J3010; J7030

== ENCOUNTER 2017-12-19 13:14 | Inpatient (IN) | payer OTHER ==
[~2017-12-19 13:14] MED LIST changes: -AMLO10TA2 PO; -AMLO5TAB4 PO; -FAMO-63 PO; -HYDR12.58 PO; +LIDOCAINE 1% PF 2 ML VIAL. ID; +ONDANSETRON PF 4 MG/2 ML VIAL. IV; -PRED50TA PO; -SPIR25TA3 PO; -TRIA15CR3 TP; +fentaNYL PF VIAL 100 MCG/2 ML VIAL IV
[2017-12-19 13:45] LABS: NEG OBC UR NEG; POS OBC UR POS; U PREG PATIENT NEGATIVE (NEG)
[2017-12-19] MEDS: IV RINGERS,LACTATED 1000ML 1,000 ML IV ×2 (13:57→22:28)
[2017-12-19] MEDS ORDERED: FAMOTIDINE 20 MG/2 ML VIAL (14:04)
[2017-12-19] MEDS ORDERED: fentaNYL PF VIAL 100 MCG/2 ML VIAL ×3 (14:04→17:30)
[2017-12-19] MEDS ORDERED: ONDANSETRON PF 4 MG/2 ML VIAL. (14:04)
[2017-12-19] MEDS ORDERED: DEXAMETHASONE SOD PHOS 20 MG/5 ML VIAL. (14:04)
[2017-12-19] MEDS ORDERED: PROPOFOL 20 ML IV (14:04)
[2017-12-19] MEDS ORDERED: LIDOCAINE 2% PF Vial for OR 5 ML VIAL. (14:04)
[2017-12-19] MEDS ORDERED: ROCURONIUM 50 MG/5 ML VIAL. (14:04)
[2017-12-19] MEDS ORDERED: MIDAZOLAM HCL/PF 2 MG/2 ML VIAL. (14:05)
[2017-12-19 14:13] LABS: ADD MAN DIFF? NO
[2017-12-19 14:16] LABS: BASO % 0 % (0-3); EOS % 1 % (0-3); HEMATOCRIT 27.5 % (36.0-47.0); HEMOGLOBIN 9.1 g/dL (12.0-15.5); LYMPH # 1.5 x10^3/uL (1.0-4.8); LYMPH % 33 % (24-48); MEAN CORPUSCULAR HEMOGLOBIN 27 pg (25-35); MEAN CORPUSCULAR HGB CONC 33 g/dL (31-37); MEAN CORPUSCULAR VOLUME 83 fL (79-100); MONO # 0.5 x10^3/uL (0.0-1.1); MONO % 12 % (0-9); NEUT # 2.4 x10^3uL (1.8-7.7); NEUT % 55 % (31-73); PLATELET COUNT 341 x10^3/uL (140-400); RED BLOOD COUNT 3.33 x10^6/uL (3.50-5.40); RED CELL DISTRIBUTION WIDTH 14.7 % (11.5-14.5); WHITE BLOOD COUNT 4.4 x10^3/uL (4.0-11.0)
[2017-12-19] MEDS ORDERED: METHYLENE BLUE 1% 10 ML VIAL. (15:20)
[2017-12-19] MEDS ORDERED: metroNIDAZOLE 0.75% TOPICAL 1 APP TUBE TP (15:20)
[2017-12-19] MEDS ORDERED: ESTROGENS, CONJ VAGINAL CREAM 30GM TUBE. (15:20)
[2017-12-19] MEDS: BUPIVACAINE-EPI 0.25%-1:200000 50 ML VIAL. (16:06)
[2017-12-19] MEDS ORDERED: VECURONIUM BOLUS 10 MG VIAL. IV (16:27)
[2017-12-19] MEDS ORDERED: 0.9 % SODIUM CHLORIDE 50 ML VIAL. IJ (16:27)
[2017-12-19] MEDS ORDERED: GLYCOPYRROLATE 1 MG/5 ML VIAL. (17:00)
[2017-12-19] MEDS ORDERED: NEOSTIGMINE METHYLSULFATE 5 MG/5 ML SYRINGE. (17:00)
[2017-12-19] MEDS ORDERED: SEVOFLURANE > 120 MINUTES. IH (17:04)
[2017-12-19] MEDS ORDERED: diphenhydrAMINE 50 MG/ML VIAL IV (17:30)
[2017-12-19] MEDS ORDERED: MAG HYDROX/ALUMINUM HYD/SIMETH 30 ML ORAL.SUSP PO (17:30)
[2017-12-19] MEDS ORDERED: 0.9 % SODIUM CHLORIDE 10 ML DISP.SYRIN. IV (17:30)
[2017-12-19] MEDS ORDERED: ceFAZolin SODIUM 1 GM in IV DEXTROSE 5% 50 ML IV (17:30)
[2017-12-19] MEDS ORDERED: ONDANSETRON PF 4 MG/2 ML VIAL. IV (17:30)
[2017-12-19] MEDS ORDERED: DEXTROSE 50% 25 GM / 50ML DISP.SYRIN. IV (17:30)
[2017-12-19] MEDS ORDERED: PROCHLORPERAZINE 10 MG/2 ML VIAL. (17:30)
[2017-12-19] MEDS ORDERED: diphenhydrAMINE HCL 25 MG CAPSULE PO (17:30)
[2017-12-19] MEDS ORDERED: SIMETHICONE 80 MG TAB.CHEW PO (17:30)
[2017-12-19] MEDS ORDERED: ZOLPIDEM 5 MG TABLET. PO (17:30)
[2017-12-19] MEDS ORDERED: HYDROmorphone 2 MG/ML VIAL IV (17:30)
[2017-12-19] MEDS ORDERED: NALOXONE 0.4 MG/ML VIAL. IV (17:30)
[2017-12-19] MEDS: fentaNYL PF VIAL 100 MCG/2 ML VIAL IV ×2 (17:52→18:13)
[2017-12-19] MEDS ORDERED: MORPHINE SULFATE 2 MG/ML DISP.SYRIN. (17:59)
[2017-12-19] MEDS: MORPHINE SULFATE 2 MG/ML DISP.SYRIN. IV ×2 (18:03→18:21)
[2017-12-19] MEDS ORDERED: hydrALAZINE 20 MG/ML VIAL. (18:23)
[2017-12-19] MEDS ORDERED: HYDROmorphone 2 MG/ML VIAL (18:35)
[2017-12-19] MEDS: hydrALAZINE 20 MG/ML VIAL. IVP (18:36)
[2017-12-19] MEDS: HYDROmorphone 2 MG/ML VIAL IV ×4 (18:42→19:18)
[2017-12-19] MEDS: PROCHLORPERAZINE 10 MG/2 ML VIAL. IV (18:44)
[2017-12-19] MEDS: KETOROLAC 30 MG/ML INJ. IV (20:21)
[2017-12-19] MEDS: SENNOSIDES/DOCUSATE 8.6/50MG TABLET. PO (21:00)
[2017-12-19] MEDS: DOCUSATE SODIUM 100 MG CAPSULE. PO (21:00)
[2017-12-19] MEDS: ceFAZolin SODIUM IV Push 1 GM VIAL. IVP (22:21)
[2017-12-19] MEDS: amLODIPine BESYLATE 5 MG TABLET PO (22:22)
[2017-12-20] MEDS: KETOROLAC 30 MG/ML INJ. IV (04:37)
[2017-12-20] MEDS: ceFAZolin SODIUM IV Push 1 GM VIAL. IVP ×2 (04:40→18:07)
[2017-12-20 06:35] LABS: ADD MAN DIFF? NO
[2017-12-20 07:06] LABS: ANION GAP 7 (6-14); BLOOD UREA NITROGEN 7 mg/dL (7-20); CALCIUM 9.2 mg/dL (8.5-10.1); CARBON DIOXIDE 28 mmol/L (21-32); CHLORIDE 99 mmol/L (98-107); CREATININE 0.7 mg/dL (0.6-1.0); GFR 112.7; GLUCOSE 122 mg/dL (70-99); POTASSIUM 4.3 mmol/L (3.5-5.1); SODIUM 134 mmol/L (136-145)
[2017-12-20 07:07] LABS: BASO % 0 % (0-3); EOS % 0 % (0-3); HEMATOCRIT 24.8 % (36.0-47.0); HEMOGLOBIN 8.1 g/dL (12.0-15.5); LYMPH # 1.1 x10^3/uL (1.0-4.8); LYMPH % 15 % (24-48); MEAN CORPUSCULAR HEMOGLOBIN 27 pg (25-35); MEAN CORPUSCULAR HGB CONC 33 g/dL (31-37); MEAN CORPUSCULAR VOLUME 82 fL (79-100); MONO # 1.1 x10^3/uL (0.0-1.1); MONO % 14 % (0-9); NEUT # 5.5 x10^3uL (1.8-7.7); NEUT % 71 % (31-73); PLATELET COUNT 315 x10^3/uL (140-400); RED BLOOD COUNT 3.04 x10^6/uL (3.50-5.40); RED CELL DISTRIBUTION WIDTH 15.2 % (11.5-14.5); WHITE BLOOD COUNT 7.8 x10^3/uL (4.0-11.0)
[2017-12-20] MEDS: hydroCHLOROthiazide 12.5 MG CAPSULE PO (09:00)
[2017-12-20] MEDS: SPIRONOLACTONE 25 MG TABLET PO (09:00)
[2017-12-20] MEDS: SENNOSIDES/DOCUSATE 8.6/50MG TABLET. PO ×2 (09:32→21:00)
[2017-12-20] MEDS: oxyCODONE/APAP 5/325 1 TAB TABLET PO ×4 (09:33→22:18)
[2017-12-20] MEDS: diphenhydrAMINE 50 MG/ML VIAL IVP (14:44)
[2017-12-20] MEDS ORDERED: diphenhydrAMINE HCL 25 MG CAPSULE PO (14:45)
[2017-12-20] MEDS: amLODIPine BESYLATE 5 MG TABLET PO (18:08)
[2017-12-20] MEDS: IBUPROFEN 800 MG TABLET. PO (22:17)
[2017-12-20] MEDS: diphenhydrAMINE HCL 25 MG CAPSULE PO (22:17)
[2017-12-20] MEDS: DOCUSATE SODIUM 100 MG CAPSULE. PO (22:17)
[2017-12-21] MEDS: IBUPROFEN 800 MG TABLET. PO ×2 (06:46→16:41)
[2017-12-21] MEDS: oxyCODONE/APAP 5/325 1 TAB TABLET PO ×3 (06:46→20:32)
[2017-12-21] MEDS: SENNOSIDES/DOCUSATE 8.6/50MG TABLET. PO ×2 (09:00→21:00)
[2017-12-21] MEDS: hydroCHLOROthiazide 12.5 MG CAPSULE PO (09:31)
[2017-12-21] MEDS: CALCIUM CARBONATE 500 MG TAB.CHEW PO (09:31)
[2017-12-21] MEDS: diphenhydrAMINE HCL 25 MG CAPSULE PO (09:32)
[2017-12-21] MEDS: DOCUSATE SODIUM 100 MG CAPSULE. PO ×2 (09:33→21:00)
[2017-12-21] MEDS: amLODIPine BESYLATE 5 MG TABLET PO (09:33)
[2017-12-21] MEDS: SPIRONOLACTONE 25 MG TABLET PO (09:33)
[2017-12-21] MEDS ORDERED: NICOTINE 7MG PATCH. TD (15:00)
[2017-12-21] MEDS: BISACODYL 10 MG SUPP.RECT. PR (16:41)
[2017-12-22] MEDS: oxyCODONE/APAP 5/325 1 TAB TABLET PO ×2 (04:42→09:27)
[2017-12-22] MEDS: DOCUSATE SODIUM 100 MG CAPSULE. PO (07:52)
[2017-12-22] MEDS: SENNOSIDES/DOCUSATE 8.6/50MG TABLET. PO (07:52)
[2017-12-22] MEDS: MAGNESIUM HYDROXIDE 2,400 MG/30 ML ORAL.SUSP. PO (07:53)
[2017-12-22] MEDS: SPIRONOLACTONE 25 MG TABLET PO (09:16)
[2017-12-22] MEDS: amLODIPine BESYLATE 5 MG TABLET PO (09:20)
[2017-12-22] MEDS: hydroCHLOROthiazide 12.5 MG CAPSULE PO (09:43)
== END 2017-12-22 16:43 | disposition home or self-care (01) | DRG 743 ==
LOC: SURG 13:14 → 3 NORTH 17:30
PROC: 0UT90ZZ Resection of Uterus, Open Approach (ICD-10-PCS; principal; 2017-12-19 14:30)
PROC: 0UT70ZZ Resection of Bilateral Fallopian Tubes, Open Approach (ICD-10-PCS; 2017-12-19 14:30)
PROC: 0UT10ZZ Resection of Left Ovary, Open Approach (ICD-10-PCS; 2017-12-19 14:30)
DX: D25.9 Leiomyoma of uterus, unspecified (principal); D50.0 Iron deficiency anemia secondary to blood loss (chronic); N73.9 Female pelvic inflammatory disease, unspecified; N93.9 Abnormal uterine and vaginal bleeding, unspecified
CPT/HCPCS: 36415; 80048; 81025; 85025; 86850; 86900; 86901; 88305; 88307; C1769; G0238; J0360; J0690; J0780; J1100; J1170; J1200; J1885; J2250; J2270; J2405; J2704; J2710; J3010; J3490; J7030; J7120; Q0163; Q9968; S0028

== ENCOUNTER 2018-02-07 12:01 | Emergency (ER) | payer OTHER ==
[2018-02-08 07:26] LABS: NEGATIVE OBC STREP NEG; POSITIVE OBC STREP POS
== END 2018-02-07 13:47 | disposition home or self-care (01) ==
LOC: ER 13:47
DX: J06.9 Acute upper respiratory infection, unspecified (principal); I10 Essential (primary) hypertension; F17.200 Nicotine dependence, unspecified, uncomplicated
CPT/HCPCS: 87070; 87880; 99284

== ENCOUNTER 2018-03-27 21:22 | Emergency (ER) | payer OTHER ==
[2018-03-27] MEDS: HALOPERIDOL LACTATE 5 MG/ML VIAL. IM (21:50)
[2018-03-27 22:28] LABS: ADD MAN DIFF? NO
[2018-03-27 22:30] LABS: BASO % 0 % (0-3); EOS % 0 % (0-3); HEMATOCRIT 34.3 % (36.0-47.0); HEMOGLOBIN 11.2 g/dL (12.0-15.5); LYMPH # 2.8 x10^3/uL (1.0-4.8); LYMPH % 40 % (24-48); MEAN CORPUSCULAR HEMOGLOBIN 26 pg (25-35); MEAN CORPUSCULAR HGB CONC 33 g/dL (31-37); MEAN CORPUSCULAR VOLUME 78 fL (79-100); MONO # 0.5 x10^3/uL (0.0-1.1); MONO % 8 % (0-9); NEUT # 3.5 x10^3uL (1.8-7.7); NEUT % 51 % (31-73); PLATELET COUNT 248 x10^3/uL (140-400); RED BLOOD COUNT 4.39 x10^6/uL (3.50-5.40); RED CELL DISTRIBUTION WIDTH 20.9 % (11.5-14.5); WHITE BLOOD COUNT 6.8 x10^3/uL (4.0-11.0)
[2018-03-27 22:48] LABS: BILIRUBIN,URINE NEGATIVE (NEG); CLARITY,URINE CLEAR; COLOR,URINE YELLOW; GLUCOSE,URINE NEGATIVE (NEG); NITRITE,URINE NEGATIVE (NEG); PH,URINE 6.5; PROTEIN,URINE NEGATIVE (NEG-TRACE); UROBILINOGEN,URINE 0.2 mg/dL (0.2 mg/dL)
[2018-03-27 22:51] LABS: BARBITURATES NEG (NEG); BENZODIAZEPINES NEG (NEG); CANNABINOIDS NEG (NEG); COCAINE NEG (NEG); METHADONE NEG (NEG); OPIATES NEG (NEG); PHENCYCLIDINE NEG (NEG)
[2018-03-27 22:52] LABS: AMPHETAMINE/METHAMPHETAMINE NEG (NEG); ETHANOL, URINE POS (NEG)
[2018-03-27 22:58] LABS: ANION GAP 15 (6-14); BLOOD UREA NITROGEN 7 mg/dL (7-20); CALCIUM 9.8 mg/dL (8.5-10.1); CARBON DIOXIDE 23 mmol/L (21-32); CHLORIDE 103 mmol/L (98-107); CREATININE 0.9 mg/dL (0.6-1.0); GFR 84.3; GLUCOSE 94 mg/dL (70-99); POTASSIUM 3.3 mmol/L (3.5-5.1); SODIUM 141 mmol/L (136-145)
[2018-03-27 23:02] LABS: BACTERIA,URINE FEW /HPF (0-FEW); RBC,URINE 0 /HPF (0-2)
[2018-03-27 23:03] LABS: SQUAMOUS EPITHELIAL CELL,UR MOD /LPF
[2018-03-27 23:25] LABS: ANISOCYTOSIS MOD; HYPOCHROMIA SLIGHT; MICROCYTOSIS SLIGHT; OVALOCYTES OCC; PLT ESTIMATE ADEQUATE (ADEQUATE); POIKILOCYTOSIS SLIGHT
== END 2018-03-27 23:10 | disposition home or self-care (01) ==
LOC: ER 21:22
DX: R45.851 Suicidal ideations (principal); I10 Essential (primary) hypertension
CPT/HCPCS: 36415; 80048; 80307; 81001; 85025; 87086; 87186; 96372; 99284; J1630; J2060

== ENCOUNTER 2018-04-20 15:47 | Emergency (ER) | payer OTHER ==
[2018-04-20] MEDS: AZITHROMYCIN 250 MG TABLET. PO (16:39)
[2018-04-20] MEDS: cefTRIAXone IM 250 MG VIAL IM (16:39)
[2018-04-20 16:46] LABS: BILIRUBIN,URINE NEGATIVE (NEG); CLARITY,URINE CLEAR; COLOR,URINE YELLOW; GLUCOSE,URINE NEGATIVE (NEG); NITRITE,URINE NEGATIVE (NEG); PH,URINE 5.5; PROTEIN,URINE NEGATIVE (NEG-TRACE); UROBILINOGEN,URINE 0.2 mg/dL (0.2 mg/dL)
[2018-04-20 17:03] LABS: NEG OBC UR NEG; POS OBC UR POS; U PREG PATIENT NEGATIVE (NEG)
[2018-04-20 17:12] LABS: BACTERIA,URINE FEW /HPF (0-FEW); HYALINE CASTS, URINE OCCASIONAL /HPF; RBC,URINE 0 /HPF (0-2); SQUAMOUS EPITHELIAL CELL,UR MOD /LPF; WBC,URINE OCC /HPF (0-4)
[2018-04-21 14:29] LABS: CHLAMYDIA PROBE Negative (Negative); GC PROBE Negative (Negative)
== END 2018-04-20 17:46 | disposition home or self-care (01) ==
LOC: ER 15:47
DX: N76.0 Acute vaginitis (principal); B96.89 Other specified bacterial agents as the cause of diseases classified elsewhere; I10 Essential (primary) hypertension; Z90.710 Acquired absence of both cervix and uterus; Z98.51 Tubal ligation status
CPT/HCPCS: 81001; 81025; 87491; 87591; 96372; 99284; J0696; Q0111; Q0144

== ENCOUNTER 2018-10-15 15:20 | Emergency (ER) | payer OTHER ==
[~2018-10-15] VITALS: Ht 170.2 cm; Wt 68.0 kg
[~2018-10-15 15:20] MED LIST changes: +AMLO10TA6 PO; +AMLO5TAB4 PO; +AMOX1TAB61 PO; +FAMO-63 PO; +HYDR-3164 PO; +HYDR12.58 PO; -LIDOCAINE 1% PF 2 ML VIAL. ID; +METR500T PO; +NAPR-514 PO; +NITR100C62 PO; -ONDANSETRON PF 4 MG/2 ML VIAL. IV; +OXYC1TAB15 PO; +PRED50TA PO; +SPIR25TA5 PO; +TRAM-48 PO; +TRIA15CR3 TP; -fentaNYL PF VIAL 100 MCG/2 ML VIAL IV
[2018-10-15 15:30] VITALS: BP 190/117
--- NOTE | 2018-10-15 15:49 | PHYS DOC ---
Past Medical History Past Medical History: Hypertension, Other Additional Past Medical Histor: UTERINE FIBROIDS Past Surgical History: , Hysterectomy, Tubal ligation, Other Additional Past Surgical Histo: left femur fracture repair with hardware Alcohol Use: Occasionally Drug Use: None Adult General Chief Complaint Chief Complaint: SEXUALLY TRANSMITTED DISEASE HPI HPI Patient is a 38 year old f p/w vaginal discharge white and chalky, fishy odor x one week. possible std exposure She is having some intermittent abdominal discomfort as well as bilateral thigh pain and some lower back pain. no dysuria, no hematuria. s/p hysterectomy for fibroids last year. has one ovary. also some pain near si joint left back. no blood in stool no fever or chills. no prior hx of this abdo pain. Review of Systems Review of Systems Constitutional: Denies fever or chills [] Cardiovascular: No additional information not addressed in HPI [] GI: : Denies dysuria or hematuria [] Integument: Denies rash or skin lesions [] Neurologic: Denies headache, focal weakness or sensory changes [] Endocrine: Denies polyuria or polydipsia [] All other systems were reviewed and found to be within normal limits, except as documented in this note. Current Medications Current Medications Current Medications Medications (Trade) Dose Ordered Sig/Massiel Start Time Stop Time Status Last Admin Dose Admin Azithromycin (Zithromax) 1,000 mg 1X ONCE 10/15/18 17:00 10/15/18 17:01 DC 10/15/18 17:04 1,000 MG Ceftriaxone Sodium (Rocephin Im) 250 mg 1X ONCE 10/15/18 17:00 10/15/18 17:01 DC 10/15/18 17:05 250 MG Allergies Allergies Allergies Coded Allergies Type Severity Reaction Last Updated Verified No Known Drug Allergies 12/19/17 No Physical Exam Physical Exam Constitutional: Well developed, well nourished, no acute distress, non-toxic appearance. [] HENT: Normocephalic, atraumatic, bilateral external ears normal, oropharynx moist, no oral exudates, nose normal. [] Eyes: PERRLA, EOMI, conjunctiva normal, no discharge. [] Neck: Normal range of motion, no tenderness, supple, no stridor. [] Pulmonary: Normal respiratory effort no increased work of breathing no obvious chest wall trauma Abdomen: Bowel sounds normal, soft, no tenderness, no masses, no pulsatile masses. [] Pelvic: There is moderate vaginal discharge no definite adnexal tenderness whitish discharge noted Skin: Warm, dry, no erythema, no rash. [] Extremities: No tenderness, no cyanosis, no clubbing, ROM intact, no edema. [] Neurologic: Alert and oriented X 3, normal motor function, normal sensory function, no focal deficits noted. [] Psychologic: Affect normal, judgement normal, mood normal. [] Current Patient Data Vital Signs Vital Signs Date Time Temp Pulse Resp B/P (MAP) Pulse Ox O2 Delivery O2 Flow Rate FiO2 10/15/18 15:30 98.7 96 20 190/117 (141) 97 Room Air 98.7 Lab Values Laboratory Tests Test 10/15/18 15:34 Urine Collection Type Unknown Urine Color Yellow Urine Clarity Cloudy Urine pH 6.5 Urine Specific [place] 1.025 Urine Protein Negative mg/dL (NEG-TRACE) Urine Glucose (UA) Negative mg/dL (NEG) Urine Ketones (Stick) Negative mg/dL (NEG) Urine Blood Negative (NEG) Urine Nitrite Negative (NEG) Urine Bilirubin Negative (NEG) Urine Urobilinogen Dipstick 1.0 mg/dL (0.2 mg/dL) Urine Leukocyte Esterase Negative (NEG) Urine RBC 0 /HPF (0-2) Urine WBC 0 /HPF (0-4) Urine Squamous Epithelial Cells Many /LPF Urine Bacteria Moderate /HPF (0-FEW) Urine Mucus Marked /LPF Urine Test Negative (NEG) Microbiology 10/15/18 Wet Prep - Final, Complete EKG EKG [] Radiology/Procedures Radiology/Procedures [] Course & Med Decision Making Course & Med Decision Making Pertinent Labs and Imaging studies reviewed. (See chart for details) []Treatment for BV was given in addition ceftriaxone and azithromycin in the emergency room of note patient's blood pressure was quite elevated she says this has happened to her several times before infectious an appointment in 10 days to initiate blood pressure medication therefore did give prescription for amlodipine she is agreeable Dragon Disclaimer Dragon Disclaimer This electronic medical record was generated, in whole or in part, using a voice recognition dictation system. Departure Departure Impression: Primary Impression: Elevated blood pressure reading Additional Impression: Bacterial vaginosis Disposition: HOME, SELF-CARE Condition: STABLE Referrals: NO PCP (PCP) Scripts Amlodipine Besylate (AMLODIPINE BESYLATE) 10 Mg Tablet 10 MG PO DAILY, #30 TAB Prov: IRON DUBOSE MD 10/15/18 Metronidazole (FLAGYL) 500 Mg Tablet 1 TAB PO BID, #14 TAB Prov: IRON DUBOSE MD 10/15/18 Problem Qualifiers IRON DUBOSE MD Oct 15, 2018 15:49
[2018-10-15 16:12] LABS: BILIRUBIN,URINE NEGATIVE (NEG); CLARITY,URINE CLOUDY; COLOR,URINE YELLOW; NITRITE,URINE NEGATIVE (NEG); PH,URINE 6.5; PROTEIN,URINE NEGATIVE (NEG-TRACE)
[2018-10-15 16:23] LABS: SQUAMOUS EPITHELIAL CELL,UR MANY /LPF
[2018-10-15 16:24] LABS: BACTERIA,URINE MODERATE /HPF (0-FEW); RBC,URINE 0 /HPF (0-2); WBC,URINE 0 /HPF (0-4)
[2018-10-15 16:35] LABS: U PREG PATIENT NEGATIVE (NEG)
[2018-10-15] MEDS ORDERED: AMLO10TA6 PO (16:58)
[2018-10-15] MEDS ORDERED: METR500T PO (16:58)
[2018-10-15] MEDS ORDERED: AZITHROMYCIN 250 MG TABLET. PO ONE (17:00)
[2018-10-15] MEDS ORDERED: cefTRIAXone IM 250 MG VIAL IM ONE (17:00)
[2018-10-19 13:17] LABS: GC PROBE Negative (Negative)
== END 2018-10-15 17:17 | disposition home or self-care (01) ==
LOC: ER 15:20
DX: I10 Essential (primary) hypertension (principal); N76.0 Acute vaginitis; B96.89 Other specified bacterial agents as the cause of diseases classified elsewhere; M79.652 Pain in left thigh; M79.651 Pain in right thigh; M54.5 Low back pain; Z90.710 Acquired absence of both cervix and uterus; Z98.51 Tubal ligation status
CPT/HCPCS: 81001; 81025; 87086; 87491; 87591; 96372; 99283; J0696; Q0111; Q0144

== ENCOUNTER 2019-04-06 08:02 | Emergency (ER) | payer OTHER ==
[~2019-04-06] VITALS: Ht 170.2 cm; Wt 76.2 kg
[~2019-04-06 08:02] MED LIST changes: -AMLO10TA6 PO; +AMLO10TA8 PO
[2019-04-06 08:16] VITALS: BP 162/125
--- NOTE | 2019-04-06 08:37 | PHYS DOC ---
Past Medical History Past Medical History: Hypertension, Other Additional Past Medical Histor: UTERINE FIBROIDS Past Surgical History: , Hysterectomy, Tubal ligation, Other Additional Past Surgical Histo: left femur fracture repair with hardware Alcohol Use: Occasionally Drug Use: None Adult General Chief Complaint Chief Complaint: Congestion HPI HPI Patient is a 38 year old female presented ER today for evaluation of productive cough for the last 3 weeks. Patient is a smoker. Patient says she coughed so much that her chest hurt. She denies any abdominal pain, no nausea vomiting. Patient denies any headache, no neck pain, no fever. She denies any recent travel or operation. Patient denies any trouble breathing. Review of Systems Review of Systems Constitutional: Denies fever or chills [] Eyes: Denies change in visual acuity, redness, or eye pain [] HENT: Denies nasal congestion or sore throat [] Respiratory: Positive for cough, no shortness of air. Cardiovascular: No additional information not addressed in HPI [] GI: Denies abdominal pain, nausea, vomiting, bloody stools or diarrhea [] : Denies dysuria or hematuria [] Musculoskeletal: Denies back pain or joint pain [] Integument: Denies rash or skin lesions [] Neurologic: Denies headache, focal weakness or sensory changes [] Endocrine: Denies polyuria or polydipsia [] All other systems were reviewed and found to be within normal limits, except as documented in this note. Allergies Allergies Allergies Coded Allergies Type Severity Reaction Last Updated Verified No Known Drug Allergies 12/19/17 No Physical Exam Physical Exam Constitutional: Well developed, well nourished, no acute distress, non-toxic appearance. [] HENT: Normocephalic, atraumatic, bilateral external ears normal, oropharynx moist, no oral exudates, nose normal. [] Eyes: PERRLA, EOMI, conjunctiva normal, no discharge. [] Neck: Normal range of motion, no tenderness, supple, no stridor. [] Cardiovascular:Heart rate regular rhythm, no murmur [] Lungs & Thorax: Bilateral breath sounds clear to auscultation [] Abdomen: Bowel sounds normal, soft, no tenderness, no masses, no pulsatile masses. [] Skin: Warm, dry, no erythema, no rash. [] Back: No tenderness, no CVA tenderness. [] Extremities: No tenderness, no cyanosis, no clubbing, ROM intact, no edema. [] Neurologic: Alert and oriented X 3, normal motor function, normal sensory function, no focal deficits noted. [] Psychologic: Affect normal, judgement normal, mood normal. [] Current Patient Data Vital Signs Vital Signs Date Time Temp Pulse Resp B/P (MAP) Pulse Ox O2 Delivery O2 Flow Rate FiO2 04/06/19 08:16 97.9 99 18 162/125 (137) 100 Room Air 97.9 EKG EKG [] Radiology/Procedures Radiology/Procedures CHEST XRAY SHOWN BILATERAL CENTRAL PREDOMINANT INSTERSTITIAL INFILTRATE. [] Course & Med Decision Making Course & Med Decision Making Pertinent Labs and Imaging studies reviewed. (See chart for details) [] Dragon Disclaimer Dragon Disclaimer This electronic medical record was generated, in whole or in part, using a voice recognition dictation system. Departure Departure Impression: Primary Impression: CAP (community acquired pneumonia) Disposition: 01 HOME, SELF-CARE Condition: STABLE Referrals: NO PCP (PCP) FOLLOW UP WITH YOUR DOCTOR THIS WEEK FOR REEVALUATION, RETURN IF NOT GETTING BETTER IN TWO DAYS. Patient Instructions: Pneumonia, Adult Scripts Prednisone (PREDNISONE) 20 Mg Tablet 1 TAB PO DAILY, #10 TAB Prov: HECTOR CERON DO 04/06/19 Cefdinir (CEFDINIR) 300 Mg Capsule 1 CAP PO BID, #20 CAP Prov: HECTOR CERON DO 04/06/19 HECTOR CERON DO April 06, 2019 08:37
[2019-04-06] MEDS ORDERED: PRED20TA PO (09:31)
[2019-04-06] MEDS ORDERED: CEFD300C PO (09:31)
--- NOTE | 2019-04-06 09:50 | RAD ---
EXAM: Chest, 2 views. HISTORY: Chest pain. COMPARISON: None. FINDINGS: 2 views the chest are obtained. There is bilateral central predominant interstitial infiltrate. There is no consolidation. There is no pleural effusion or pneumothorax. There is enlargement of the cardiac silhouette. IMPRESSION: 1. Bilateral central predominant interstitial infiltrate. 2. Cardiomegaly. Electronically signed by: Danyelle Carver MD (04/06/2019 8:53 AM) [place] [id number]
== END 2019-04-06 09:51 | disposition home or self-care (01) ==
LOC: ER 08:02
DX: J18.9 Pneumonia, unspecified organism (principal); I10 Essential (primary) hypertension; Z98.890 Other specified postprocedural states; Z90.710 Acquired absence of both cervix and uterus; Z98.51 Tubal ligation status
CPT/HCPCS: 71046; 99284

== ENCOUNTER 2019-04-18 09:49 | Emergency (ER) | payer OTHER ==
[~2019-04-18] VITALS: Ht 160 cm; Wt 76.2 kg
[~2019-04-18 09:49] MED LIST changes: +CEFD300C PO; +PRED20TA PO
[2019-04-18 10:19] VITALS: BP 161/116
[2019-04-18] MEDS ORDERED: IPRATRPIUM/ALBUTEROL 0.5/2.5MG 3 ML NEBU. NEB ONE (10:30)
[2019-04-18] MEDS ORDERED: BENZONATATE 100 MG CAPSULE. PO ONE (10:30)
--- NOTE | 2019-04-18 10:30 | PHYS DOC ---
Past Medical History Past Medical History: Hypertension, Other Additional Past Medical Histor: UTERINE FIBROIDS Past Surgical History: , Hysterectomy, Tubal ligation, Other Additional Past Surgical Histo: left femur fracture repair with hardware Smoking: Cigarettes Alcohol Use: Occasionally Drug Use: None Adult General Chief Complaint Chief Complaint: SHORTNESS OF BREATH HPI HPI Patient is a 38 year old female with history of hypertension, current smoker, who presents to the ED today complaining over productive cough for 2 weeks. Patient states she was seen in the ED on April 06, 2019 for the same complaint and was informed she has pneumonia. She states she was sent home with Cefdinir and prednisone. She states she still has a cough. Denies any fever. Denies any chest pain. She states she has intermittent episodes of shortness of breath after long coughing spells. Review of Systems Review of Systems Constitutional: Denies fever or chills [] Eyes: Denies change in visual acuity, redness, or eye pain [] HENT: Denies nasal congestion or sore throat [] Respiratory: Reports cough, denies shortness of breath [] Cardiovascular: No additional information not addressed in HPI [] GI: Denies abdominal pain, nausea, vomiting, bloody stools or diarrhea [] : Denies dysuria or hematuria [] Musculoskeletal: Denies back pain or joint pain [] Integument: Denies rash or skin lesions [] Neurologic: Denies headache, focal weakness or sensory changes [] All other systems were reviewed and found to be within normal limits, except as documented in this note. Current Medications Current Medications Current Medications Medications (Trade) Dose Ordered Sig/Massiel Start Time Stop Time Status Last Admin Dose Admin Albuterol/ Ipratropium (Duoneb) 3 ml 1X ONCE 04/18/19 10:30 04/18/19 10:31 DC 04/18/19 10:44 3 ML Benzonatate (Tessalon Perle) 100 mg 1X ONCE 04/18/19 10:30 04/18/19 10:31 DC 04/18/19 10:38 100 MG Allergies Allergies Allergies Coded Allergies Type Severity Reaction Last Updated Verified No Known Drug Allergies 12/19/17 No Physical Exam Physical Exam Constitutional: Well developed, well nourished, no acute distress, non-toxic appearance. [] HENT: Normocephalic, atraumatic, bilateral external ears normal, oropharynx moist, no oral exudates, nose normal. [] Eyes: PERRLA, EOMI, conjunctiva normal, no discharge. [] Neck: Normal range of motion, no tenderness, supple, no stridor. [] Cardiovascular:Heart rate regular rhythm, no murmur [] Lungs & Thorax: Patient is actively coughing in the ED. Bilateral breath sounds clear to auscultation [] Abdomen: Bowel sounds normal, soft, no tenderness, no masses, no pulsatile masses. [] Skin: Warm, dry, no erythema, no rash. [] Back: No tenderness, no CVA tenderness. [] Extremities: No tenderness, no cyanosis, no clubbing, ROM intact, no edema. [] Neurologic: Alert and oriented X 3, normal motor function, normal sensory function, no focal deficits noted. [] Psychologic: Affect normal, judgement normal, mood normal. [] Current Patient Data Vital Signs Vital Signs Date Time Temp Pulse Resp B/P (MAP) Pulse Ox O2 Delivery O2 Flow Rate FiO2 04/18/19 10:48 92 Room Air 04/18/19 10:19 98.4 97 20 161/116 (131) 98.4 EKG EKG [] Radiology/Procedures Radiology/Procedures []PROCEDURE: CHEST PA & LATERAL CHEST PA LATERAL Technique: PA and lateral views of the chest were obtained. Clinical History: Shortness of breath Comparison: None. Findings: Moderate cardiomegaly.. Mild prominent bilateral interstitial lung markings.. The pleural margins are clear. Impression: Mild congestive changes.. DICTATED and SIGNED BY: LOBO PINEDA MD DATE: 04/18/19 1035 Course & Med Decision Making Course & Med Decision Making Pertinent Labs and Imaging studies reviewed. (See chart for details) This is a 38-year-old female patient presenting to the ED today with a cough for 2 weeks. Patient was seen in the ED approximately 10 days ago, was started on Cefdinir and prednisone which she completed. She states she is still having a dry cough Patient is a smoker, instructed to consider smoking cessation. Chest x-ray noted for cardiomegaly otherwise no acute findings. Vitals on arrival to the ED temperature 98.2, blood pressure 161/116-history of hypertension, she states she just took her medicines prior to coming to the ED, O2 sats 97% on room air. Respiration 20. Patient was given a breathing-her coughing has subsided. Discharged with albuterol inhaler, prednisone, Zyrtec, encouraged to consider smoking cessation and follow-up with her PCP next week. Donnie Disclaimer Donnie Disclaimer This electronic medical record was generated, in whole or in part, using a voice recognition dictation system. Departure Departure Impression: Primary Impression: Smoking addiction Additional Impressions: Bronchitis Elevated blood pressure reading Disposition: HOME, SELF-CARE Condition: STABLE Referrals: NO PCP (PCP) Follow-up with your doctor in the next 1-2 weeks Patient Instructions: Acute Bronchitis Additional Instructions: You were evaluated in the emergency room, we highly encouraged to consider smoking cessation. Use the prescribed medications as ordered. Follow-up with your doctor next week this week. Scripts Cetirizine Hcl (ZYRTEC) 10 Mg Tablet 1 TAB PO DAILY, #30 TAB 2 Refills Prov: PETE BALDERAS APRN 04/18/19 Benzonatate (TESSALON PERLE) 100 Mg Capsule 1 CAP PO TID, #30 CAP Prov: PETE BALDERAS APRN 04/18/19 Albuterol Sulfate (Proair Hfa) 8.5 Gm Hfa.aer.ad 1 PUFF INH PRN Q6HRS PRN for SHORTNESS OF BREATH, #1 INHALER Prov: PETE BALDERAS APRN 04/18/19 Problem Qualifiers PETE BALDERAS APRN Apr 18, 2019 10:30
--- NOTE | 2019-04-18 10:41 | RAD ---
CHEST PA LATERAL Technique: PA and lateral views of the chest were obtained. Clinical History: Shortness of breath Comparison: None. Findings: Moderate cardiomegaly.. Mild prominent bilateral interstitial lung markings.. The pleural margins are clear. Impression: Mild congestive changes..
[2019-04-18] MEDS ORDERED: BENZ100C PO (11:19)
[2019-04-18] MEDS ORDERED: ALBU2.5V8 INH (11:19)
[2019-04-18] MEDS ORDERED: CETI10TA22 PO (11:20)
== END 2019-04-18 11:28 | disposition home or self-care (01) ==
LOC: ER 09:49
DX: J40 Bronchitis, not specified as acute or chronic (principal); I10 Essential (primary) hypertension; F17.210 Nicotine dependence, cigarettes, uncomplicated
CPT/HCPCS: 71046; 94640; 99284; J7620

== ENCOUNTER 2019-06-18 10:00 | Emergency (ER) | payer OTHER ==
[~2019-06-18] VITALS: Ht 172.7 cm; Wt 80.3 kg
[~2019-06-18 10:00] MED LIST changes: +ALBU2.5V8 INH; +BENZ100C PO; +CETI10TA22 PO
[2019-06-18 10:54] LABS: BILIRUBIN,URINE NEGATIVE (NEG); CLARITY,URINE CLEAR; COLOR,URINE AMBER; NITRITE,URINE NEGATIVE (NEG); PROTEIN,URINE NEGATIVE (NEG-TRACE); UROBILINOGEN,URINE 0.2 mg/dL (0.2 mg/dL)
[2019-06-18 11:01] LABS: BACTERIA,URINE 0 /HPF (0-FEW); RBC,URINE RARE /HPF (0-2); SQUAMOUS EPITHELIAL CELL,UR MOD /LPF
--- NOTE | 2019-06-18 11:10 | PHYS DOC ---
Past Medical History Past Medical History: Hypertension, Other Additional Past Medical Histor: UTERINE FIBROIDS Past Surgical History: , Hysterectomy, Tubal ligation, Other Additional Past Surgical Histo: left femur fracture repair with hardware Additional Information: 1/2 pack a day Alcohol Use: Occasionally Drug Use: None Adult General Chief Complaint Chief Complaint: SEXUALLY TRANSMITTED DISEASE HPI HPI Patient is a 38 year old AA female who presents to the emergency department with a request for STD testing. Patient states she had sexual intercourse with a new man last week in the condom broke. She reports some pelvic discomfort. She currently rates her pain a 6/10 on the pain scale, there are no alleviating factors or aggravating factors. ROS Patient denies any fever, cough, shortness of breath, wheezing, sore throat, ear pain, or rash. She denies any foul-smelling discharge from her vagina, vaginal itching, dysuria, increased urinary frequency, hematuria, or back pain. All other ROS is neg unless otherwise noted in HPI. Review of Systems Review of Systems See Above Current Medications Current Medications Current Medications Medications (Trade) Dose Ordered Sig/Massiel Start Time Stop Time Status Last Admin Dose Admin Azithromycin (Zithromax) 1,000 mg 1X ONCE 06/18/19 11:15 06/18/19 11:16 DC Ceftriaxone Sodium (Rocephin Im) 250 mg 1X ONCE 06/18/19 11:15 06/18/19 11:16 DC Allergies Allergies Allergies Coded Allergies Type Severity Reaction Last Updated Verified No Known Drug Allergies 12/19/17 No Physical Exam Physical Exam See Above Constitutional: Well developed, well nourished, no acute distress, non-toxic appearance. [] HENT: Normocephalic, atraumatic, bilateral external ears normal, oropharynx moist, no oral exudates, nose normal. [] Eyes: PERRLA, EOMI, conjunctiva normal, no discharge. [] Neck: Normal range of motion,no stridor. [] Lungs & Thorax: Respirations even and unlabored, no retractions, no respiratory distress Pelvic Exam: Geotechnicial Properties Technician present Shelli ERT Abdomen: Nontender, soft External Genitalia: Normal Skin Speculum: Normal vaginal mucosa, no cervix, thick white vaginal discharge Bimanual: No adnexal masses or tenderness Skin: Warm, dry, no erythema, no rash. [] Extremities: No cyanosis,ROM intact, no edema. [] Neurologic: Alert and oriented X 3, no focal deficits noted. [] Psychologic: Affect normal, judgement normal, mood normal. [] Current Patient Data Vital Signs Vital Signs Date Time Temp Pulse Resp B/P (MAP) Pulse Ox O2 Delivery O2 Flow Rate FiO2 06/18/19 10:10 98.4 83 14 158/118 (131) 98 Room Air 98.4 Lab Values Laboratory Tests Test 06/18/19 10:44 Urine Collection Type Void Urine Color [place] Urine Clarity Clear Urine pH 6.0 Urine Specific [place] 1.015 Urine Protein Negative mg/dL (NEG-TRACE) Urine Glucose (UA) Negative mg/dL (NEG) Urine Ketones (Stick) Negative mg/dL (NEG) Urine Blood Negative (NEG) Urine Nitrite Negative (NEG) Urine Bilirubin Negative (NEG) Urine Urobilinogen Dipstick 0.2 mg/dL (0.2 mg/dL) Urine Leukocyte Esterase Trace (NEG) Urine RBC Rare /HPF (0-2) Urine WBC 1-4 /HPF (0-4) Urine Squamous Epithelial Cells Mod /LPF Urine Bacteria 0 /HPF (0-FEW) Urine Mucus Mod /LPF Microbiology 06/18/19 Wet Prep - Final, Complete EKG EKG [] Radiology/Procedures Radiology/Procedures [] Course & Med Decision Making Course & Med Decision Making Pertinent Labs and Imaging studies reviewed. (See chart for details) dx: BV, concern about STI in female without diagnosis Patient was treated prophylactically with 250 mg of IM Rocephin, and 1 g of PO Zithromax. Patient was instructed to avoid having intercourse until the results of gonorrhea and chlamydia testing are available, patient was notified that these results would not be available for 48 hours. If one or both of these tests is positive, patient needs to refrain from intercourse for approximately 1 week following the treatment of any current partners. Prescription written for Flagyl 500 mg twice a day �7 days. Patient was instructed to follow-up with her SENIOR TECHNICAL MANAGER if symptoms persist, return to the ER symptoms worsen. Patient verbalized an understanding of home care, medications, follow-up, and return to ED instructions and was in agreement with the plan of care. [] Dragon Disclaimer Dragon Disclaimer This electronic medical record was generated, in whole or in part, using a voice recognition dictation system. Departure Departure Impression: Primary Impression: Bacterial vaginosis Additional Impression: Concern about sexually transmitted disease in female without diagnosis Disposition: 01 HOME, SELF-CARE Condition: STABLE Referrals: RAFI KIMBLE MD (PCP) Patient Instructions: Bacterial Vaginosis, [id number], Sexually Transmitted Disease, [id number] Additional Instructions: Fill the prescription and use as directed. Recommend that you go to your local health department for comprehensive sexually transmitted disease testing. You have been treated for a suspected gonorrhea and chlamydia. Avoid having intercourse until the results of gonorrhea and chlamydia testing are available, these results will not be available for 48 hours. If one or both of these tests is positive, you need to refrain from intercourse for approximately 1 week following the treatment of any current partners. Follow-up with your primary care doctor if symptoms persist, return to ER symptoms worsen. Scripts Metronidazole (FLAGYL) 500 Mg Tablet 1 TAB PO BID for 7 Days, #14 TAB 0 Refills Prov: TISH LEDESMA APRN 06/18/19 Problem Qualifiers TISH LEDESMA APRN Jun 18, 2019 11:10
[2019-06-18] MEDS ORDERED: cefTRIAXone IM 250 MG VIAL IM ONE (11:15)
[2019-06-18] MEDS ORDERED: AZITHROMYCIN 250 MG TABLET. PO ONE (11:15)
[2019-06-18] MEDS ORDERED: METR500T PO (11:28)
[2019-06-18 11:43] VITALS: BP 158/93
[2019-06-21 23:07] LABS: GC PROBE Negative (Negative)
== END 2019-06-18 12:02 | disposition home or self-care (01) ==
LOC: ER 10:00
DX: N76.0 Acute vaginitis (principal); B96.89 Other specified bacterial agents as the cause of diseases classified elsewhere; Z20.2 Contact with and (suspected) exposure to infections with a predominantly sexual mode of transmission; I10 Essential (primary) hypertension; F17.200 Nicotine dependence, unspecified, uncomplicated; Z98.890 Other specified postprocedural states; Z90.710 Acquired absence of both cervix and uterus; Z98.51 Tubal ligation status
CPT/HCPCS: 81001; 87086; 87491; 87591; 96372; 99285; J0696; Q0111; Q0144

== ENCOUNTER 2019-10-12 15:02 | Emergency (ER) | payer OTHER ==
[~2019-10-12] VITALS: Ht 170.2 cm; Wt 80.3 kg
[2019-10-12 15:16] VITALS: BP 165/106
--- NOTE | 2019-10-12 16:19 | PHYS DOC ---
Past Medical History Past Medical History: CHF, Hypertension, Other Additional Past Medical Histor: UTERINE FIBROIDS Past Surgical History: , Hysterectomy, Tubal ligation, Other Additional Past Surgical Histo: left femur fracture repair with hardware Alcohol Use: Occasionally Drug Use: None Adult General Chief Complaint Chief Complaint: VAGINAL PROBLEM HPI HPI Patient is a 39 year old female who presents with vaginal discharge and itching this been ongoing for 3 days. The patient's describes the discharge is yellow, and also white cottage cheese. Review of Systems Review of Systems Constitutional: Denies fever or chills [] Eyes: Denies change in visual acuity, redness, or eye pain [] HENT: Denies nasal congestion or sore throat [] Respiratory: Denies cough or shortness of breath [] Cardiovascular: No additional information not addressed in HPI [] GI: Denies abdominal pain, nausea, vomiting, bloody stools or diarrhea [] : Reports discharge and itching. Musculoskeletal: Denies back pain or joint pain [] Integument: Denies rash or skin lesions [] Neurologic: Denies headache, focal weakness or sensory changes [] Endocrine: Denies polyuria or polydipsia [] Complete systems were reviewed and found to be within normal limits, except as documented in this note. Allergies Allergies Allergies Coded Allergies Type Severity Reaction Last Updated Verified No Known Drug Allergies 12/19/17 No Physical Exam Physical Exam Constitutional: Well developed, well nourished, no acute distress, non-toxic appearance. [] HENT: Normocephalic, atraumatic, bilateral external ears normal, oropharynx moist, no oral exudates, nose normal. [] Eyes: PERRLA, EOMI, conjunctiva normal, no discharge. [] Neck: Normal range of motion, no tenderness, supple, no stridor. [] Abdomen: Bowel sounds normal, soft, no tenderness, no masses, no pulsatile masses. [] Skin: Warm, dry, no erythema, no rash. [] Back: No tenderness, no CVA tenderness. [] Extremities: No tenderness, no cyanosis, no clubbing, ROM intact, no edema. [] Neurologic: Alert and oriented X 3, normal motor function, normal sensory function, no focal deficits noted. [] Psychologic: Affect normal, judgement normal, mood normal. [] Pelvic Exam: External exam is normal and without rash,, OS is closed, cottage cheese discharge and yellow discharge, uterus tender, cervical tenderness noted. Current Patient Data Vital Signs Vital Signs Date Time Temp Pulse Resp B/P (MAP) Pulse Ox O2 Delivery O2 Flow Rate FiO2 10/12/19 15:16 98.5 84 18 165/106 (125) 99 Room Air 98.5 Lab Values Microbiology 10/12/19 Wet Prep - Final, Complete EKG EKG [] Radiology/Procedures Radiology/Procedures [] Course & Med Decision Making Course & Med Decision Making Pertinent Labs and Imaging studies reviewed. (See chart for details) Will get wet prep, urine, and GC/CHLAM. Wet Prep shows yeast, and WBCs. Will treat for GC/CHLAM. Will also treat for yeast infection. Patient was tender will treat for PID with Doxycycline and Flagyl. Will give Fluconazole, Rocephin and Azithromycin in ER. Dragon Disclaimer Dragon Disclaimer This electronic medical record was generated, in whole or in part, using a voice recognition dictation system. Departure Departure Impression: Primary Impression: Pelvic inflammatory disease (PID) Additional Impression: Candidiasis of genitalia in female Disposition: 01 HOME, SELF-CARE Condition: STABLE Referrals: RAFI KIMBLE MD (PCP) Patient Instructions: Pelvic Inflammatory Disease, Sexually Transmitted Disease Additional Instructions: Thank you for visiting [facility]. We appreciate you trusting us with your care. If any additional problems come up don't hesitate to return to visit us. Please follow up with your primary care provider so they can plan additional care if needed and know about the problem that you had. If symptoms worsen come back to the Emergency Department. Any concerning symptoms that start such as chest pain, shortness of air, weakness or numbness on one side of the body, running high fevers or any other concerning symptoms return to the ER. Your GC/CHLAM results will be back in 72 hours. If positive you will get a phone call. Please do not have sexually intercourse for 2 weeks and if you get a phone call notify your sexual partner. Scripts Fluconazole (DIFLUCAN) 150 Mg Tablet 1 TAB PO ONCE, #1 TAB take at end of antibiotics treatment. Prov: MARY SMART APRN 10/12/19 Metronidazole (METRONIDAZOLE) 500 Mg Tablet 1 TAB PO BID for 14 Days, #28 TAB 0 Refills Prov: MARY SMART APRN 10/12/19 Doxycycline Hyclate (DOXYCYCLINE HYCLATE) 100 Mg Capsule 1 CAP PO BID for 14 Days, #28 CAP Prov: MARY SMART APRN 10/12/19 Problem Qualifiers MARY SMART APRN Oct 12, 2019 16:19
[2019-10-12] MEDS ORDERED: DOXY100C2 PO (17:27)
[2019-10-12] MEDS ORDERED: METR-34 PO (17:27)
[2019-10-12] MEDS ORDERED: FLUC150T PO (17:28)
[2019-10-12] MEDS ORDERED: FLUCONAZOLE 100 MG TABLET. PO STA (17:28)
[2019-10-12] MEDS ORDERED: AZITHROMYCIN 250 MG TABLET. PO ONE (17:30)
[2019-10-12] MEDS ORDERED: cefTRIAXone IM 250 MG VIAL IM ONE (17:30)
[2019-10-13 18:09] LABS: GC PROBE Negative (Negative)
== END 2019-10-12 17:44 | disposition home or self-care (01) ==
LOC: ER 15:02
DX: N73.9 Female pelvic inflammatory disease, unspecified (principal); B37.49 Other urogenital candidiasis; I11.0 Hypertensive heart disease with heart failure; I50.9 Heart failure, unspecified; Z98.890 Other specified postprocedural states; Z90.710 Acquired absence of both cervix and uterus; Z98.51 Tubal ligation status
CPT/HCPCS: 87491; 87591; 96372; 99284; J0696; Q0111; Q0144